=== PATIENT | male | born 1985 | race Caucasian/White ===

== ENCOUNTER 2019-03-19 00:19 | Emergency (ER) | payer OTHER, MEDICAID ==
[~2019-03-19] VITALS: Ht 167.6 cm; Wt 76.2 kg
[~2019-03-19 00:19] MED LIST: AUGMENTIN 875875 M1 PO; NAPROSYN500 MG PO; NOHOMEMEDICATIONS
[2019-03-19 02:32] VITALS: BP 135/74
--- NOTE | 2019-03-19 17:19 | EKG ---
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
[2019-03-19] MEDS ORDERED: TRAZODONE HCL100 MG PO (20:10)
[2019-03-19] MEDS ORDERED: VISTARIL 25 MG25 M1 PO (20:11)
[2019-03-19] MEDS ORDERED: SEROQUEL XR 30300 M1 PO (20:11)
[2019-03-19] MEDS ORDERED: SEROQUEL 50 MG50 M1 PO (20:12)
[2019-03-19] MEDS ORDERED: SUBOXONE 8 MG-1 EAC3 SL (20:13)
== END 2019-03-19 02:32 | disposition home or self-care (01) ==
LOC: M.ERS 00:19
DX: F20.9 Schizophrenia, unspecified (principal); F15.10 Other stimulant abuse, uncomplicated; F17.210 Nicotine dependence, cigarettes, uncomplicated; Z88.8 Allergy status to other drugs, medicaments and biological substances

== ENCOUNTER 2019-03-19 07:28 | Emergency (ER) | payer OTHER, MEDICAID ==
[~2019-03-19] VITALS: Ht 180.3 cm; Wt 73.5 kg
[2019-03-19 07:55] LABS: ABSOLUTE BASOPHILS 0.1 thou/uL (0.0-0.2); ABSOLUTE LYMPHOCYTES 1.3 thou/uL (0.8-5.3); ABSOLUTE MONOCYTES 0.5 thou/uL (0.0-1.2); ABSOLUTE NEUTROPHILS 5.6 thou/uL (1.6-8.1); BASOPHILS 0.9 %; EOSINOPHILS 0.6 %; HEMATOCRIT 40.6 % (42.0-52.0); LYMPHOCYTES 17.4 %; MCH 30.4 pg (26.0-34.0); MCHC 34.4 g/dL (28.0-37.0); MCV 88.1 fL (80.0-100.0); MONOCYTES 6.5 %; MPV 8.9 fl. (7.2-11.1); NUCLEATED RBCS 0 /100WBC; PLATELET COUNT* 278 thou/uL (150-400); POLYS 74.6 %; RDW-CV 14.3 % (10.5-14.5); WBC 7.5 thou/uL (4.0-11.0)
[2019-03-19 08:05] LABS: CALCIUM 9.5 mg/dL (8.5-10.1); CREATININE 0.7 mg/dL (0.6-1.3); POTASSIUM 3.7 mmol/L (3.5-5.1)
[2019-03-19 08:15] LABS: ALBUMIN 3.8 g/dL (3.4-5.0); TOTAL BILIRUBIN 0.2 mg/dL (<0.1-1.0); TOTAL PROTEIN 7.6 g/dL (6.4-8.2)
[2019-03-19 08:18] LABS: ACETAMINOPHEN < 2 ug/mL (10-30); ALCOHOL < 10 mg/dL (<10); SALICYLATE 3.5 mg/dL (2.8-20.0)
[2019-03-19 08:28] LABS: LIPASE 74 U/L (73-393); MAGNESIUM 1.9 mg/dL (1.8-2.4); NT-PRO BRAIN NAT PEPTIDE 52 pg/mL (<300); TROPONIN-I LEVEL <0.06 ng/mL (<0.06)
[2019-03-19 08:36] LABS: URINE BILIRUBIN NEGATIVE (Negative); URINE BLOOD NEGATIVE (Negative); URINE CLARITY CLEAR; URINE COLOR YELLOW; URINE GLUCOSE-RANDOM NEGATIVE (Negative); URINE KETONES NEGATIVE (Negative); URINE LEUKOCYTES-REFLEX NEGATIVE (Negative); URINE NITRITE-REFLEX NEGATIVE (Negative); URINE PROTEIN NEGATIVE (Negative); URINE UROBILINOGEN 0.2 E.U./dl (0.2-1.0)
[2019-03-19 08:42] LABS: AMP/METHAMP POSITIVE (Negative); BARBITURATES Negative (Negative); BENZODIAZEPINES Negative (Negative); COCAINE Negative (Negative); METHADONE Negative (Negative); OPIATES Negative (Negative); PCP Negative (Negative); THC Negative (Negative)
--- NOTE | 2019-03-19 17:20 | EKG ---
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
[2019-03-19] MEDS ORDERED: TRAZODONE HCL100 MG PO (20:10)
[2019-03-19] MEDS ORDERED: SEROQUEL XR 30300 M1 PO (20:11)
[2019-03-19] MEDS ORDERED: VISTARIL 25 MG25 M1 PO (20:11)
[2019-03-19] MEDS ORDERED: SEROQUEL 50 MG50 M1 PO (20:12)
[2019-03-19] MEDS ORDERED: SUBOXONE 8 MG-1 EAC3 SL (20:13)
[2019-03-19 21:58] VITALS: BP 105/69
== END 2019-03-19 21:58 | disposition home or self-care (01) ==
LOC: M.ERS 07:28
PROVIDERS: Emergency Medicine Emergency Medical Services
DX: F15.159 Other stimulant abuse with stimulant-induced psychotic disorder, unspecified (principal); F17.210 Nicotine dependence, cigarettes, uncomplicated; F20.9 Schizophrenia, unspecified; Z88.8 Allergy status to other drugs, medicaments and biological substances

== ENCOUNTER 2019-04-08 19:03 | Emergency (ER) | payer OTHER, MEDICAID ==
[~2019-04-08] VITALS: Ht 182.9 cm; Wt 61.2 kg
[~2019-04-08 19:03] MED LIST changes: +SEROQUEL 50 MG50 M1 PO; +SEROQUEL XR 30300 M1 PO; +SUBOXONE 8 MG-1 EAC3 SL; +TRAZODONE HCL100 MG PO; +VISTARIL 25 MG25 M1 PO
[2019-04-08 19:30] LABS: ABSOLUTE BASOPHILS 0.1 thou/uL (0.0-0.2); ABSOLUTE LYMPHOCYTES 1.6 thou/uL (0.8-5.3); ABSOLUTE MONOCYTES 0.9 thou/uL (0.0-1.2); BASOPHILS 0.7 %; EOSINOPHILS 0.3 %; HEMATOCRIT 43.8 % (42.0-52.0); HEMOGLOBIN 15.3 gm/dL (14.0-18.0); MCH 30.3 pg (26.0-34.0); MCHC 34.8 g/dL (28.0-37.0); MCV 86.9 fL (80.0-100.0); MONOCYTES 9.1 %; MPV 8.9 fl. (7.2-11.1); NUCLEATED RBCS 0 /100WBC; PLATELET COUNT* 296 thou/uL (150-400); POLYS 72.9 %; RBC 5.04 mil/uL (4.50-6.00); RDW-CV 13.8 % (10.5-14.5); WBC 9.7 thou/uL (4.0-11.0)
[2019-04-08 19:39] LABS: CALCIUM 9.5 mg/dL (8.5-10.1); CREATININE 1.2 mg/dL (0.6-1.3)
[2019-04-08 19:44] LABS: ALBUMIN 4.3 g/dL (3.4-5.0); MAGNESIUM 1.9 mg/dL (1.8-2.4); TOTAL BILIRUBIN 0.8 mg/dL (<0.1-1.0); TOTAL PROTEIN 7.8 g/dL (6.4-8.2)
[2019-04-09 03:24] LABS: AMP/METHAMP POSITIVE (Negative); BARBITURATES Negative (Negative); BENZODIAZEPINES POSITIVE (Negative); COCAINE Negative (Negative); METHADONE Negative (Negative); OPIATES Negative (Negative); PCP Negative (Negative); THC Negative (Negative)
[2019-04-09 03:56] VITALS: BP 114/79
[2019-04-09 14:11] LABS: HBsAG-EMPLOYEE EXPOSURE Negative (Negative)
--- NOTE | 2019-04-09 16:54 | EKG ---
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 : 1985 Requested By: Sage Cano Order Number: [id number] MD: Lauri De La Torre Measurements Intervals [place] Rate: 118 P: 80 [place]: 130 QRS: 52 QRSD: 100 T: 66 QT: 327 QTc: 459 Interpretive Statements Sinus tachycardia Biatrial enlargement Artifact in lead(s) I,II,III,aVR,aVL,aVF and baseline wander in lead(s) II,V1,V2,V3 Compared to ECG 03/19/2019 07:36:20 Atrial abnormality now present Sinus rate has increased ST (T wave) deviation no longer present Electronically Signed On 04-09-2019 16:54:43 CDT by Lauri De La Torre [email or web address] <ELECTRONICALLY SIGNED> By: Lauri De La Torre MD, FACC 04/09/19 1654 42 42 Lauri De La Torre MD, FACC /EPI
== END 2019-04-09 04:00 | disposition home or self-care (01) ==
LOC: M.ERS 19:03
PROVIDERS: Emergency Medicine Emergency Medical Services
DX: R07.89 Other chest pain (principal); F20.9 Schizophrenia, unspecified; F17.210 Nicotine dependence, cigarettes, uncomplicated; Z88.8 Allergy status to other drugs, medicaments and biological substances

== ENCOUNTER → 2019-04-15 | Emergency (ER) | payer OTHER, MEDICAID ==
[~2019-04-15] VITALS: Ht 182.9 cm; Wt 81.7 kg
[2019-04-15 02:24] VITALS: BP 152/95
== END ==
LOC: M.ERS 01:37
DX: F20.9 Schizophrenia, unspecified (principal); F17.210 Nicotine dependence, cigarettes, uncomplicated; Z88.8 Allergy status to other drugs, medicaments and biological substances

== ENCOUNTER 2019-08-25 12:43 | Emergency (ER) | payer OTHER ==
[~2019-08-25] VITALS: Ht 208.3 cm; Wt 77.1 kg
[2019-08-25 13:29] VITALS: BP 138/76
== END 2019-08-25 13:29 | disposition home or self-care (01) ==
LOC: M.ERS 12:43
DX: F41.0 Panic disorder [episodic paroxysmal anxiety] (principal); K02.9 Dental caries, unspecified; F17.210 Nicotine dependence, cigarettes, uncomplicated; Z88.8 Allergy status to other drugs, medicaments and biological substances

== ENCOUNTER 2019-09-16 12:13 | Emergency (ER) | payer OTHER ==
[~2019-09-16] VITALS: Ht 180.3 cm; Wt 78.5 kg
[2019-09-16] MEDS ORDERED: IBUPROFEN 800800 M1 PO (13:35)
[2019-09-16 13:51] VITALS: BP 137/80
== END 2019-09-16 13:52 | disposition home or self-care (01) ==
LOC: M.ERS 12:13
DX: S63.591A Other specified sprain of right wrist, initial encounter (principal); F17.210 Nicotine dependence, cigarettes, uncomplicated; Z88.0 Allergy status to penicillin; X58.XXXA Exposure to other specified factors, initial encounter; Y93.89 Activity, other specified; Y92.89 Other specified places as the place of occurrence of the external cause; Y99.8 Other external cause status

== ENCOUNTER 2019-09-28 03:25 | Emergency (ER) | payer OTHER ==
[~2019-09-28] VITALS: Ht 182.9 cm; Wt 87.5 kg
[~2019-09-28 03:25] MED LIST changes: +IBUPROFEN 800800 M1 PO
[2019-09-28 03:46] LABS: URINE BILIRUBIN NEGATIVE (Negative); URINE BLOOD NEGATIVE (Negative); URINE CLARITY CLEAR; URINE COLOR YELLOW; URINE GLUCOSE-RANDOM NEGATIVE (Negative); URINE KETONES NEGATIVE (Negative); URINE LEUKOCYTES-REFLEX NEGATIVE (Negative); URINE NITRITE-REFLEX NEGATIVE (Negative); URINE PROTEIN NEGATIVE (Negative); URINE SPECIFIC GRAVITY >= 1.030 (1.005-1.030); URINE UROBILINOGEN 0.2 E.U./dl (0.2-1.0)
[2019-09-28 03:53] LABS: AMP/METHAMP POSITIVE (Negative); BARBITURATES Negative (Negative); BENZODIAZEPINES Negative (Negative); COCAINE Negative (Negative); METHADONE Negative (Negative); OPIATES Negative (Negative); PCP Negative (Negative); THC Negative (Negative)
[2019-09-28 04:40] VITALS: BP 123/86
== END 2019-09-28 04:44 | disposition home or self-care (01) ==
LOC: M.ERS 03:25
PROVIDERS: Emergency Medicine
DX: F15.10 Other stimulant abuse, uncomplicated (principal); R10.30 Lower abdominal pain, unspecified; F17.210 Nicotine dependence, cigarettes, uncomplicated; Z88.8 Allergy status to other drugs, medicaments and biological substances; Z79.899 Other long term (current) drug therapy

== ENCOUNTER 2019-11-09 10:48 | Emergency (ER) | payer OTHER ==
[~2019-11-09] VITALS: Ht 180.3 cm; Wt 77.1 kg
[2019-11-09 10:52] VITALS: BP 155/105
[2019-11-09] MEDS ORDERED: ACETAMINOPHEN-1 EAC2 PO (11:25)
[2019-11-09] MEDS ORDERED: IBUPROFEN 800800 MG PO (11:25)
[2019-11-09] MEDS ORDERED: PENICILLIN V P500 MG PO (11:25)
== END 2019-11-09 11:43 | disposition home or self-care (01) ==
LOC: M.ERS 10:48
DX: K03.81 Cracked tooth (principal); F41.9 Anxiety disorder, unspecified; F20.9 Schizophrenia, unspecified; F17.210 Nicotine dependence, cigarettes, uncomplicated; Z88.8 Allergy status to other drugs, medicaments and biological substances

== ENCOUNTER 2019-11-13 20:55 | Emergency (ER) | payer OTHER ==
[~2019-11-13] VITALS: Ht 180.3 cm; Wt 79.4 kg
[~2019-11-13 20:55] MED LIST changes: +ACETAMINOPHEN-1 EAC2 PO; +IBUPROFEN 800800 MG PO; +PENICILLIN V P500 MG PO
[2019-11-13 21:02] VITALS: BP 142/90
[2019-11-13] MEDS ORDERED: TYLENOL WITH CO1 TA1 PO (21:21)
== END 2019-11-13 21:44 | disposition home or self-care (01) ==
LOC: M.ERS 20:55
DX: K08.89 Other specified disorders of teeth and supporting structures (principal); F41.9 Anxiety disorder, unspecified; F20.9 Schizophrenia, unspecified; F17.210 Nicotine dependence, cigarettes, uncomplicated; Z88.8 Allergy status to other drugs, medicaments and biological substances

== ENCOUNTER 2019-11-30 11:52 | Emergency (ER) | payer OTHER ==
[~2019-11-30] VITALS: Ht 182.9 cm; Wt 79.4 kg
[~2019-11-30 11:52] MED LIST changes: +TYLENOL WITH CO1 TA1 PO
[2019-11-30] MEDS ORDERED: NAPROSYN500 MG PO (12:24)
[2019-11-30] MEDS ORDERED: TYLENOL WITH CO1 TA1 PO (12:24)
[2019-11-30] MEDS ORDERED: PENICILLIN V P500 MG PO (12:24)
[2019-11-30 12:33] VITALS: BP 137/90
== END 2019-11-30 12:33 | disposition home or self-care (01) ==
LOC: M.ERS 11:52
DX: S02.5XXA Fracture of tooth (traumatic), initial encounter for closed fracture (principal); F17.210 Nicotine dependence, cigarettes, uncomplicated; F20.9 Schizophrenia, unspecified; F41.9 Anxiety disorder, unspecified; Z79.899 Other long term (current) drug therapy; X58.XXXA Exposure to other specified factors, initial encounter; Y93.89 Activity, other specified; Y92.89 Other specified places as the place of occurrence of the external cause; Y99.8 Other external cause status

== ENCOUNTER 2019-12-20 09:21 | Emergency (ER) | payer OTHER ==
[~2019-12-20] VITALS: Ht 177.8 cm; Wt 77.1 kg
[2019-12-20] MEDS ORDERED: PENICILLIN VK500 MG PO (09:40)
[2019-12-20] MEDS ORDERED: IBUPROFEN 800800 M1 PO (09:40)
[2019-12-20 09:47] VITALS: BP 137/83
== END 2019-12-20 09:47 | disposition home or self-care (01) ==
LOC: M.ERS 09:21
DX: S02.5XXA Fracture of tooth (traumatic), initial encounter for closed fracture (principal); K02.9 Dental caries, unspecified; F17.210 Nicotine dependence, cigarettes, uncomplicated; Z88.8 Allergy status to other drugs, medicaments and biological substances; X58.XXXA Exposure to other specified factors, initial encounter; Y93.89 Activity, other specified; Y92.89 Other specified places as the place of occurrence of the external cause; Y99.8 Other external cause status

== ENCOUNTER 2020-02-04 17:29 | Emergency (ER) | payer OTHER ==
[~2020-02-04] VITALS: Ht 180.3 cm; Wt 81.7 kg
[~2020-02-04 17:29] MED LIST changes: +PENICILLIN VK500 MG PO
[2020-02-04 17:49] LABS: ABSOLUTE BASOPHILS 0.1 thou/uL (0.0-0.2); ABSOLUTE EOSINOPHILS 0.3 thou/uL (0.0-0.7); ABSOLUTE LYMPHOCYTES 1.5 thou/uL (0.8-5.3); ABSOLUTE MONOCYTES 0.5 thou/uL (0.0-1.2); ABSOLUTE NEUTROPHILS 4.4 thou/uL (1.6-8.1); BASOPHILS 1.2 %; EOSINOPHILS 4.5 %; HEMATOCRIT 44.5 % (42.0-52.0); HEMOGLOBIN 15.5 gm/dL (14.0-18.0); LYMPHOCYTES 21.7 %; MCHC 34.8 g/dL (28.0-37.0); MONOCYTES 7.4 %; MPV 9.6 fl. (7.2-11.1); NUCLEATED RBCS 0 /100WBC; PLATELET COUNT* 225 thou/uL (150-400); POLYS 65.2 %; WBC 6.7 thou/uL (4.0-11.0)
[2020-02-04 17:54] LABS: CALCIUM 8.2 mg/dL (8.5-10.1); CREATININE 1.1 mg/dL (0.6-1.3); POTASSIUM 3.3 mmol/L (3.5-5.1)
[2020-02-04 18:05] LABS: ALBUMIN 3.7 g/dL (3.4-5.0); TOTAL BILIRUBIN 0.4 mg/dL (<0.1-1.0); TOTAL PROTEIN 7.2 g/dL (6.4-8.2)
[2020-02-04 18:27] VITALS: BP 120/75
--- NOTE | 2020-02-05 14:01 | EKG ---
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 : 1985 Requested By: Sage Cano Order Number: [id number] MD: Lauri De La Torre Measurements Intervals [place] Rate: 95 P: 74 [place]: 137 QRS: 60 QRSD: 92 T: 61 QT: 337 QTc: 424 Interpretive Statements Sinus rhythm Compared to ECG 04/08/2019 19:43:05 Sinus tachycardia no longer present Atrial abnormality no longer present Electronically Signed On 02-05-2020 14:01:16 CDT by Lauri De La Torre [email or web address] <ELECTRONICALLY SIGNED> By: Lauri De La Torre MD, [facility] 02/05/20 1401 1742 1742 Lauri De La Torre MD, [facility] /EPI
== END 2020-02-04 18:27 | disposition home or self-care (01) ==
LOC: M.ERS 17:29
PROVIDERS: Emergency Medicine Emergency Medical Services
DX: F41.0 Panic disorder [episodic paroxysmal anxiety] (principal); F20.9 Schizophrenia, unspecified; F17.210 Nicotine dependence, cigarettes, uncomplicated; Z88.8 Allergy status to other drugs, medicaments and biological substances

== ENCOUNTER 2020-03-11 23:22 | Emergency (ER) | payer OTHER ==
[~2020-03-11] VITALS: Ht 185.4 cm; Wt 88.1 kg
[2020-03-12 00:20] LABS: HEMATOCRIT 41.6 % (42.0-52.0); HEMOGLOBIN 14.7 gm/dL (14.0-18.0); MCH 31.1 pg (26.0-34.0); MCHC 35.2 g/dL (28.0-37.0); MCV 88.2 fL (80.0-100.0); MPV 9.1 fl. (7.2-11.1); RBC 4.72 mil/uL (4.50-6.00); WBC 9.8 thou/uL (4.0-11.0)
[2020-03-12 00:29] LABS: CALCIUM 8.6 mg/dL (8.5-10.1); CREATININE 1.1 mg/dL (0.6-1.3); POTASSIUM 3.2 mmol/L (3.5-5.1)
[2020-03-12 00:34] LABS: ALBUMIN 3.9 g/dL (3.4-5.0); TOTAL BILIRUBIN 0.4 mg/dL (<0.1-1.0); TOTAL PROTEIN 7.1 g/dL (6.4-8.2)
[2020-03-12 00:35] LABS: ALCOHOL < 10 mg/dL (<10); SALICYLATE 6.1 mg/dL (2.8-20.0)
[2020-03-12 00:37] LABS: ACETAMINOPHEN < 2 ug/mL (10-30)
[2020-03-12 00:54] LABS: URINE BILIRUBIN NEGATIVE (Negative); URINE BLOOD NEGATIVE (Negative); URINE CLARITY CLEAR; URINE COLOR YELLOW; URINE GLUCOSE-RANDOM NEGATIVE (Negative); URINE KETONES NEGATIVE (Negative); URINE LEUKOCYTES NEGATIVE (Negative); URINE NITRITE NEGATIVE (Negative); URINE PROTEIN TRACE (Negative); URINE SPECIFIC GRAVITY >= 1.030 (1.005-1.030); URINE UROBILINOGEN 0.2 E.U./dl (0.2-1.0)
[2020-03-12 01:01] LABS: AMP/METHAMP POSITIVE (Negative); BARBITURATES Negative (Negative); BENZODIAZEPINES Negative (Negative); COCAINE Negative (Negative); METHADONE Negative (Negative); OPIATES Negative (Negative); PCP Negative (Negative); THC POSITIVE (Negative)
[2020-03-12 06:21] VITALS: BP 100/70
== END 2020-03-12 06:21 | disposition home or self-care (01) ==
LOC: M.ERS 23:22
PROVIDERS: Personal Emergency Response Attendant
DX: F29 Unspecified psychosis not due to a substance or known physiological condition (principal); F15.10 Other stimulant abuse, uncomplicated; F17.210 Nicotine dependence, cigarettes, uncomplicated; F41.9 Anxiety disorder, unspecified; F20.9 Schizophrenia, unspecified

== ENCOUNTER 2020-04-02 13:55 | Emergency (ER) | payer OTHER ==
[~2020-04-02] VITALS: Ht 180.3 cm; Wt 72.6 kg
[2020-04-02 13:58] VITALS: BP 149/91
[2020-04-02 14:19] LABS: ABSOLUTE BASOPHILS 0.1 thou/uL (0.0-0.2); ABSOLUTE EOSINOPHILS 0.1 thou/uL (0.0-0.7); ABSOLUTE MONOCYTES 0.4 thou/uL (0.0-1.2); ABSOLUTE NEUTROPHILS 4.9 thou/uL (1.6-8.1); BASOPHILS 0.8 %; EOSINOPHILS 2.1 %; HEMATOCRIT 44.8 % (42.0-52.0); HEMOGLOBIN 15.3 gm/dL (14.0-18.0); LYMPHOCYTES 15.3 %; MCH 30.2 pg (26.0-34.0); MCHC 34.1 g/dL (28.0-37.0); MCV 88.5 fL (80.0-100.0); MONOCYTES 6.5 %; MPV 8.8 fl. (7.2-11.1); NUCLEATED RBCS 0 /100WBC; PLATELET COUNT* 214 thou/uL (150-400); POLYS 75.3 %; RBC 5.06 mil/uL (4.50-6.00); RDW-CV 13.4 % (10.5-14.5); WBC 6.5 thou/uL (4.0-11.0)
--- NOTE | 2020-04-03 10:00 | EKG ---
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
== END 2020-04-02 14:31 | disposition left against medical advice (07) ==
LOC: M.ERS 13:55
PROVIDERS: Emergency Medicine Emergency Medical Services
DX: R07.89 Other chest pain (principal); F17.210 Nicotine dependence, cigarettes, uncomplicated

== ENCOUNTER 2020-05-26 01:13 | Emergency (ER) | payer OTHER ==
[~2020-05-26] VITALS: Ht 180.3 cm; Wt 72.6 kg
[2020-05-26 01:16] VITALS: BP 131/58
--- NOTE | 2020-05-26 10:07 | EKG ---
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: : 1985 Requested By: Mona Johnson Order Number: [id number] MD: Idalia Schroeder Measurements Intervals [place] Rate: 96 P: 72 ID: 146 QRS: 71 QRSD: 90 T: 54 QT: 347 QTc: 439 Interpretive Statements Sinus rhythm Compared to ECG 04/02/2020 13:58:07 Sinus tachycardia no longer present Electronically Signed On 05-26-2020 10:07:18 [employer]AD[employer]CH[employer] by Idalia Schroeder [email or web address] <ELECTRONICALLY SIGNED> By: Idalia Schroeder MD, [facility] 05/26/20 1007 7 7 Idalia Schroeder MD, FACC /EPI
== END 2020-05-26 01:36 ==
LOC: M.ERS 01:13
DX: F41.9 Anxiety disorder, unspecified (principal); R50.9 Fever, unspecified; F17.210 Nicotine dependence, cigarettes, uncomplicated; Z88.8 Allergy status to other drugs, medicaments and biological substances

== ENCOUNTER 2020-07-01 01:47 | Emergency (ER) | payer OTHER ==
[~2020-07-01] VITALS: Ht 180.3 cm; Wt 83.0 kg
[2020-07-01 02:19] LABS: ABSOLUTE EOSINOPHILS 0.1 thou/uL (0.0-0.7); ABSOLUTE LYMPHOCYTES 1.4 thou/uL (0.8-5.3); ABSOLUTE MONOCYTES 0.9 thou/uL (0.0-1.2); ABSOLUTE NEUTROPHILS 5.8 thou/uL (1.6-8.1); BASOPHILS 0.5 %; EOSINOPHILS 1.3 %; HEMATOCRIT 41.5 % (42.0-52.0); HEMOGLOBIN 14.3 gm/dL (14.0-18.0); LYMPHOCYTES 16.6 %; MCH 29.9 pg (26.0-34.0); MCHC 34.5 g/dL (28.0-37.0); MCV 86.6 fL (80.0-100.0); MONOCYTES 11.3 %; MPV 8.7 fl. (7.2-11.1); NUCLEATED RBCS 0 /100WBC; PLATELET COUNT* 238 thou/uL (150-400); POLYS 70.3 %; RBC 4.79 mil/uL (4.50-6.00); RDW-CV 13.3 % (10.5-14.5); WBC 8.2 thou/uL (4.0-11.0)
[2020-07-01 02:31] LABS: CALCIUM 8.7 mg/dL (8.5-10.1); POTASSIUM 3.4 mmol/L (3.5-5.1)
[2020-07-01 02:34] LABS: APTT 25.4 Seconds (25.0-31.3); PROTIME 10.5 Seconds (9.20-11.50)
[2020-07-01 02:42] LABS: ALBUMIN 4.1 g/dL (3.4-5.0); TOTAL BILIRUBIN 0.8 mg/dL (<0.1-1.0)
[2020-07-01 03:23] VITALS: BP 126/68
--- NOTE | 2020-07-01 13:00 | EKG ---
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
== END 2020-07-01 03:23 | disposition home or self-care (01) ==
LOC: M.ERS 01:47
PROVIDERS: Personal Emergency Response Attendant
DX: F41.9 Anxiety disorder, unspecified (principal); R07.89 Other chest pain; F17.210 Nicotine dependence, cigarettes, uncomplicated; Z88.8 Allergy status to other drugs, medicaments and biological substances

== ENCOUNTER 2020-07-02 12:14 | Emergency (ER) | payer OTHER ==
[~2020-07-02] VITALS: Ht 182.9 cm; Wt 83.0 kg
[2020-07-02 15:20] VITALS: BP 113/51
== END 2020-07-02 15:20 | disposition home or self-care (01) ==
LOC: M.ERS 12:14
DX: F15.10 Other stimulant abuse, uncomplicated (principal); F17.210 Nicotine dependence, cigarettes, uncomplicated; Z88.8 Allergy status to other drugs, medicaments and biological substances

== ENCOUNTER 2020-10-26 23:15 | Emergency (ER) | payer OTHER ==
[~2020-10-26] VITALS: Ht 182.9 cm; Wt 77.1 kg
[2020-10-26 23:40] LABS: ABSOLUTE BASOPHILS 0.1 thou/uL (0.0-0.2); ABSOLUTE EOSINOPHILS 0.4 thou/uL (0.0-0.7); ABSOLUTE LYMPHOCYTES 2.1 thou/uL (0.8-5.3); ABSOLUTE MONOCYTES 0.8 thou/uL (0.0-1.2); ABSOLUTE NEUTROPHILS 3.8 thou/uL (1.6-8.1); EOSINOPHILS 5.2 %; HEMATOCRIT 41.8 % (42.0-52.0); HEMOGLOBIN 14.1 gm/dL (14.0-18.0); LYMPHOCYTES 29.8 %; MCH 29.8 pg (26.0-34.0); MCHC 33.7 g/dL (28.0-37.0); MCV 88.4 fL (80.0-100.0); MONOCYTES 10.6 %; NUCLEATED RBCS 0 /100WBC; PLATELET COUNT* 233 thou/uL (150-400); POLYS 53.4 %; RBC 4.73 mil/uL (4.50-6.00); RDW-CV 13.7 % (10.5-14.5); WBC 7.2 thou/uL (4.0-11.0)
[2020-10-26 23:48] LABS: CALCIUM 8.3 mg/dL (8.5-10.1); CREATININE 0.9 mg/dL (0.6-1.3); POTASSIUM 3.4 mmol/L (3.5-5.1)
[2020-10-26 23:51] LABS: APTT 25.5 Seconds (25.0-31.3); INR 0.9
[2020-10-26 23:53] LABS: ALBUMIN 3.3 g/dL (3.4-5.0); TOTAL BILIRUBIN 0.3 mg/dL (<0.1-1.0); TOTAL PROTEIN 7.1 g/dL (6.4-8.2)
[2020-10-27 01:10] VITALS: BP 128/91
--- NOTE | 2020-10-27 09:20 | EKG ---
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
== END 2020-10-27 01:10 ==
LOC: M.ERS 23:15
PROVIDERS: Personal Emergency Response Attendant
DX: R07.89 Other chest pain (principal); R06.2 Wheezing; F17.210 Nicotine dependence, cigarettes, uncomplicated; Z88.5 Allergy status to narcotic agent

== ENCOUNTER 2020-12-14 22:37 | Emergency (ER) | payer OTHER ==
[~2020-12-14] VITALS: Ht 182.9 cm; Wt 81.7 kg
[2020-12-15 00:24] VITALS: BP 114/72
== END 2020-12-15 00:25 | disposition home or self-care (01) ==
LOC: M.ERS 22:37
DX: M79.661 Pain in right lower leg (principal); B35.3 Tinea pedis; F17.210 Nicotine dependence, cigarettes, uncomplicated

== ENCOUNTER 2020-12-15 19:10 | Emergency (ER) | payer OTHER ==
[~2020-12-15] VITALS: Ht 182.9 cm; Wt 79.4 kg
[2020-12-15 20:27] LABS: URINE BILIRUBIN NEGATIVE (Negative); URINE BLOOD NEGATIVE (Negative); URINE CLARITY CLEAR; URINE COLOR YELLOW; URINE GLUCOSE-RANDOM NEGATIVE (Negative); URINE KETONES TRACE (Negative); URINE LEUKOCYTES NEGATIVE (Negative); URINE NITRITE NEGATIVE (Negative); URINE PROTEIN NEGATIVE (Negative)
[2020-12-15 20:31] LABS: AMP/METHAMP POSITIVE (Negative); BARBITURATES Negative (Negative); BENZODIAZEPINES Negative (Negative); COCAINE Negative (Negative); METHADONE Negative (Negative); OPIATES Negative (Negative); PCP Negative (Negative); THC Negative (Negative)
[2020-12-15 20:45] LABS: HEMOGLOBIN 14.4 gm/dL (14.0-18.0); MCH 30.9 pg (26.0-34.0); MCHC 35.1 g/dL (28.0-37.0); MPV 9.3 fl. (7.2-11.1); RBC 4.65 mil/uL (4.50-6.00); RDW-CV 13.6 % (10.5-14.5); WBC 6.4 thou/uL (4.0-11.0)
[2020-12-15 20:56] LABS: CALCIUM 8.8 mg/dL (8.5-10.1); POTASSIUM 3.7 mmol/L (3.5-5.1)
[2020-12-15 21:01] LABS: ALBUMIN 3.4 g/dL (3.4-5.0); TOTAL BILIRUBIN 0.4 mg/dL (<0.1-1.0); TOTAL PROTEIN 7.2 g/dL (6.4-8.2)
[2020-12-15 21:02] LABS: ACETAMINOPHEN < 2 ug/mL (10-30); SALICYLATE 2.8 mg/dL (2.8-20.0)
[2020-12-15 21:03] LABS: ALCOHOL < 10 mg/dL (<10)
[2020-12-15 23:01] VITALS: BP 124/77
== END 2020-12-15 23:02 | disposition home or self-care (01) ==
LOC: M.ERS 19:10
PROVIDERS: Personal Emergency Response Attendant
DX: F15.980 Other stimulant use, unspecified with stimulant-induced anxiety disorder (principal); Z20.822 Contact with and (suspected) exposure to COVID-19; F17.210 Nicotine dependence, cigarettes, uncomplicated; F20.9 Schizophrenia, unspecified; Z88.5 Allergy status to narcotic agent